=== PATIENT | male | born 1990 | race Caucasian/White ===

== ENCOUNTER 2025-01-17 18:55 | Inpatient (IN) | payer SELFPAY ==
[~2025-01-17] VITALS: Ht 175.3 cm; Wt 122.5 kg
[2025-01-17 19:55] LABS: BASOPHILS % 0.2 % (0.0-2.0); EOSINOPHILS % 0.2 % (0.0-5.0); HEMATOCRIT. 40.6 % (42.0-52.0); LYMPHOCYTES % 8.4 % (20.0-50.0); MEAN CORPUSCULAR VOLUME 87.5 fL (80.0-94.0); MEAN PLATELET VOLUME 9.6 fl (7.4-10.4); MONOCYTES % 9.5 % (2.0-8.0); NEUTROPHILS % 81.7 % (40.0-76.0); PLATELET 269 x1000/uL (130-400); RED BLOOD CELL COUNT 4.64 mill/uL (4.7-6.1); RED CELL DISTRIBUTION WIDTH 14.1 % (11.6-14.6); WHITE BLOOD COUNT 14.4 x1000/uL (4.5-11.0)
[2025-01-17 20:04] LABS: CHLORIDE 100 mEq/L (98-107); POTASSIUM 3.7 mEq/L (3.5-5.1); SODIUM 134 mEq/L (136-145)
[2025-01-17 20:05] LABS: CARBON DIOXIDE 22 mEq/L (21-32); INR 1.1; PROTHROMBIN TIME 11.9 sec (9.6-11.0)
[2025-01-17 20:06] LABS: CALCIUM 8.2 mg/dL (8.7-10.4)
[2025-01-17 20:10] LABS: CREATININE 0.9 mg/dL (0.6-1.3); GLUCOSE 143 mg/dL (70-105)
[2025-01-17 20:11] LABS: UREA NITROGEN BLOOD 13 mg/dL (9-23)
[2025-01-17 20:12] LABS: ALANINE AMINOTRANSFERASE 17 IU/L (10-49); ALBUMIN 3.5 g/dL (3.2-4.8); ASPARTATE AMINOTRANSFERASE 25 IU/L (<34)
[2025-01-17 20:13] LABS: BILIRUBIN DIRECT 0.5 mg/dL (<=3.0); BILIRUBIN TOTAL 1.5 mg/dL (0.1-1.0); PROTEIN TOTAL 7.1 g/dL (6.0-8.3)
[2025-01-17] MEDS: CEFTRIAXONE 1GM/50ML 50 ML IV ONE (20:23)
[2025-01-17 20:24] LABS: TROPONIN I HIGH SENSITIVITY 277 ng/L (3.0-53)
[2025-01-17] MEDS ORDERED: MAGNESIUM/ALUMINUM HYDROXIDE/SIMETHICONE 30ML UDC PO PRN (21:15)
[2025-01-17] MEDS ORDERED: GUAIFENESIN 200MG/10ML SUGAR FREE UDC PO PRN (21:15)
[2025-01-17] MEDS ORDERED: ONDANSETRON HCL 4MG/2ML INJ IV PRN (21:15)
[2025-01-17] MEDS ORDERED: DOCUSATE SODIUM 100MG CAPSULE PO PRN (21:15)
[2025-01-17] MEDS ORDERED: ACETAMINOPHEN 325MG TABLET PO PRN (21:15)
[2025-01-17] MEDS ORDERED: CLONIDINE 0.1MG TABLET PO PRN (21:15)
[2025-01-17] MEDS: CLOPIDOGREL 75MG TABLET PO ONE (21:31)
[2025-01-17] MEDS: ASPIRIN 325MG EC TABLET PO ONE (21:31)
[2025-01-17] MEDS: AZITHROMYCIN 500MG/250ML 250 ML IV ONE (21:31)
[2025-01-17 21:42] VITALS: PULSE 122; RESP 20; O2SAT 93
[2025-01-17] MEDS: IPRATROPIUM/ALBUTEROL 0.5-3(2.5)MG/3ML NEB HHN SCH (21:42)
[2025-01-17] MEDS: LACTATED RINGERS 1,000 ML IV ONE (22:05)
[2025-01-17] MEDS: ENOXAPARIN 120MG/0.8ML SYR SUBCUT SCH (22:16)
[2025-01-17] MEDS: METHYLPREDNISOLONE SOD SUCC 125MG/2ML (ACT-O-VIAL) IV NR (22:54)
[2025-01-17] MEDS ORDERED: NITROGLYCERIN 0.4MG TABLET SL SL PRN (23:30)
[2025-01-17] MEDS ORDERED: DEXTROSE 50% WATER 50ML SYRINGE IV PRN (23:30)
[2025-01-17 23:44] LABS: IRON 30 ug/dL (65-175)
[2025-01-17 23:48] LABS: TOTAL IRON BINDING CAPACITY > 670 ug/dl (250-425)
[2025-01-17] MEDS: IOHEXOL-350 100 ML BOTTLE ONE (23:52)
[2025-01-18] VITALS (8 sets, daily range): BP systolic 106–126; BP diastolic 61–86; PULSE 90–112; RESP 18–22; TEMP 36.4–36.6; O2SAT 92–97
[2025-01-18] MEDS: BUDESONIDE 0.5MG/2ML NEB HHN SCH (01:22)
[2025-01-18 03:19] LABS: CLARITY URINE CLEAR (CLEAR); COLOR URINE DARK YELLOW (YELLOW); GLUCOSE URINE TRACE (NEGATIVE); KETONES URINE NEGATIVE (NEGATIVE); LEUKOCYTE ESTERASE URINE NEGATIVE (NEGATIVE); NITRITE URINE NEGATIVE (NEGATIVE); OCCULT BLOOD URINE 1+ (NEGATIVE); PH URINE 5.5 (4.5-8.0); PROTEIN URINE 3+ (NEGATIVE); SPECIFIC GRAVITY URINE 1.068 (1.005-1.030)
[2025-01-18 03:23] LABS: SODIUM URINE RANDOM 21 mEq/L
[2025-01-18 03:30] LABS: *AMPHETAMINES SCREEN URINE NEGATIVE (NEGATIVE); *BARBITURATES SCREEN URINE NEGATIVE (NEGATIVE); *BENZODIAZEPINES SCREEN URINE NEGATIVE (NEGATIVE); *COCAINE SCREEN URINE PRESUMPTIVE POSITIVE (NEGATIVE); CANNABINOID URINE SCREEN NEGATIVE (NEGATIVE); ECSTASY MDMA SCREEN URINE NEGATIVE (NEGATIVE); METHADONE URINE SCREEN NEGATIVE (NEGATIVE); OPIATES URINE SCREEN NEGATIVE (NEGATIVE); PHENCYCLIDINE URINE SCREEN NEGATIVE (NEGATIVE)
[2025-01-18 03:48] LABS: BACTERIA URINE NONE SEEN; RBC URINE NONE SEEN /hpf (0-2); SQUAMOUS EPITHELIAL CELL URINE NONE SEEN /lpf (RARE/1+); WBC URINE 0-2 /hpf (0-2)
[2025-01-18 04:40] LABS: HEMATOCRIT. 40.3 % (42.0-52.0); HEMOGLOBIN. 13.2 g/dL (14.0-18.0); MEAN CORPUSCULAR HEMOGLOBIN 28.6 pg (28.0-32.0); MEAN CORPUSCULAR HGB CONC 32.8 g/dL (31.0-37.0); MEAN PLATELET VOLUME 9.2 fl (7.4-10.4); PLATELET 266 x1000/uL (130-400); RED BLOOD CELL COUNT 4.64 mill/uL (4.7-6.1); RED CELL DISTRIBUTION WIDTH 14.2 % (11.6-14.6); WHITE BLOOD COUNT 13.7 x1000/uL (4.5-11.0)
[2025-01-18 04:50] LABS: CARBON DIOXIDE 24 mEq/L (21-32); CHLORIDE 101 mEq/L (98-107); POTASSIUM 4.1 mEq/L (3.5-5.1); SODIUM 135 mEq/L (136-145)
[2025-01-18 04:51] LABS: CALCIUM 8.5 mg/dL (8.7-10.4)
[2025-01-18 04:56] LABS: CREATINE KINASE MB FRACTION < 0.5 ng/mL (0.5-3.6); GLUCOSE 251 mg/dL (70-105); TRIGLYCERIDE 77 mg/dL (0-150); UREA NITROGEN BLOOD 16 mg/dL (9-23)
[2025-01-18 04:57] LABS: LDL CHOLESTEROL 87 mg/dL (5-100)
[2025-01-18 04:58] LABS: CHOLESTEROL 145 mg/dL (<200); CREATINE KINASE 153 IU/L (46-171); HDL CHOLESTEROL 38 mg/dL (>55); PHOSPHORUS 2.8 mg/dL (2.5-4.9)
[2025-01-18 05:08] LABS: DIFFERENTIAL COMMENT 1
[2025-01-18 05:18] LABS: OSMOLALITY URINE 799 mOsm/kg (500-850)
[2025-01-18 05:22] LABS: TROPONIN I HIGH SENSITIVITY 191 ng/L (3.0-53)
[2025-01-18 07:40] LABS: PLATELET ESTIMATE NORMAL
[2025-01-18] MEDS: BLOOD SUGAR DIAGNOSTIC STRIP TEST SCH (08:19)
[2025-01-18] MEDS: INSULIN LISPRO 100 UNITS/ML SUBCUT SCH (08:19)
[2025-01-18] MEDS: ASPIRIN 81MG EC TABLET PO SCH (11:56)
[2025-01-18] MEDS: FERROUS SULFATE 325MG TABLET PO SCH (11:56)
[2025-01-18] MEDS ORDERED: AZITHROMYCIN 500MG/250ML 250 ML IV SCH (21:00)
[2025-01-18] MEDS: FAMOTIDINE 20MG TABLET PO SCH (22:47)
[2025-01-18] MEDS: ATORVASTATIN CALCIUM 20MG TABLET PO SCH (22:48)
[2025-01-18] MEDS: SODIUM CHLORIDE 0.45% 1,000 ML IV SCH (22:56)
[2025-01-18] MEDS: CEFTRIAXONE 1GM/50ML 50 ML IV SCH (22:57)
[2025-01-19] VITALS (11 sets, daily range): BP systolic 105–126; BP diastolic 59–75; PULSE 19–114; RESP 16–24; TEMP 36.1–37.9; O2SAT 86–99
[2025-01-19] MEDS: AZITHROMYCIN 500MG/250ML 250 ML IV SCH (01:49)
[2025-01-19] MEDS: IPRATROPIUM BROMIDE (0.02%) 0.5MG/2.5ML NEB HHN SCH (02:10)
[2025-01-19 07:06] LABS: HEMATOCRIT 38.1 % (42.0-52.0); HEMATOCRIT. 38.1 % (42.0-52.0); HEMOGLOBIN 12.5 g/dL (14.0-18.0); HEMOGLOBIN. 12.5 g/dL (14.0-18.0); MEAN CORPUSCULAR HEMOGLOBIN 28.6 pg (28.0-32.0); MEAN CORPUSCULAR HGB CONC 32.9 g/dL (31.0-37.0); MEAN PLATELET VOLUME 9.8 fl (7.4-10.4); PLATELET 325 x1000/uL (130-400); RED BLOOD CELL COUNT 4.38 mill/uL (4.7-6.1); RED CELL DISTRIBUTION WIDTH 13.7 % (11.6-14.6); WHITE BLOOD COUNT 20.7 x1000/uL (4.5-11.0)
[2025-01-19 07:59] LABS: DIFFERENTIAL COMMENT 1
[2025-01-19] MEDS: ENOXAPARIN 40MG/0.4ML SYR SUBCUT SCH (09:37)
[2025-01-19 11:57] LABS: CHLORIDE 100 mEq/L (98-107); POTASSIUM 3.9 mEq/L (3.5-5.1); SODIUM 133 mEq/L (136-145)
[2025-01-19 11:58] LABS: CALCIUM 8.6 mg/dL (8.7-10.4); CARBON DIOXIDE 20 mEq/L (21-32)
[2025-01-19 12:03] LABS: CREATININE 0.9 mg/dL (0.6-1.3); GLUCOSE 220 mg/dL (70-105); UREA NITROGEN BLOOD 24 mg/dL (9-23)
[2025-01-19 12:05] LABS: ALANINE AMINOTRANSFERASE 46 IU/L (10-49); ALBUMIN 3.6 g/dL (3.2-4.8); ASPARTATE AMINOTRANSFERASE 48 IU/L (<34); BILIRUBIN TOTAL 0.6 mg/dL (0.1-1.0); PROTEIN TOTAL 7.1 g/dL (6.0-8.3)
[2025-01-19 12:07] LABS: TROPONIN I HIGH SENSITIVITY 88 ng/L (3.0-53)
[2025-01-19 14:31] LABS: PLATELET ESTIMATE NORMAL
[2025-01-19] MEDS ORDERED: METF-414 MT (15:36)
[2025-01-19] MEDS ORDERED: ATOR20TA PO (15:36)
[2025-01-19] MEDS ORDERED: FAMO20TA8 PO (15:36)
[2025-01-19] MEDS ORDERED: PULM50 HHN (15:36)
[2025-01-19] MEDS ORDERED: LEVO750T68 MT (15:36)
[2025-01-19] MEDS ORDERED: ASPI-1406 PO (15:36)
[2025-01-19] MEDS ORDERED: FERR-63 PO (15:36)
[2025-01-19] MEDS: CEFTRIAXONE 1GM/50ML 50 ML IV SCH (19:59)
[2025-01-20] VITALS (11 sets, daily range): BP systolic 106–129; BP diastolic 56–78; PULSE 87–120; RESP 18–23; TEMP 36.3–36.8; O2SAT 88–99
[2025-01-20] MEDS: IPRATROPIUM/ALBUTEROL 0.5-3(2.5)MG/3ML NEB HHN PRN (04:23)
[2025-01-20] MEDS ORDERED: IPRATROPIUM BROMIDE (0.02%) 0.5MG/2.5ML NEB HHN SCH (09:15)
[2025-01-20] MEDS: PIPERACILLIN/TAZO 3.375G/50ML 50 ML IV SCH (09:29)
[2025-01-20] MEDS: ZINC SULFATE 220 MG ( 50 ) CAPSULE PO SCH (09:29)
[2025-01-20] MEDS: PREDNISONE 5MG TABLET PO SCH (09:29)
[2025-01-20] MEDS: ASCORBIC ACID 500 MG TABLET PO SCH (09:29)
[2025-01-20 10:57] LABS: INFLUENZA TYPE A Presumptive Negative (Pres. Neg.)
[2025-01-20 10:58] LABS: INFLUENZA TYPE B Presumptive Negative (Pres. Neg.)
[2025-01-20 11:04] LABS: RESPIRATORY SYNCYTIAL VIRUS Not Detected (Not Detectd)
[2025-01-20 11:17] LABS: CARBON DIOXIDE 26 mEq/L (21-32); CHLORIDE 100 mEq/L (98-107); POTASSIUM 4.2 mEq/L (3.5-5.1); SODIUM 135 mEq/L (136-145)
[2025-01-20 11:18] LABS: CALCIUM 8.6 mg/dL (8.7-10.4)
[2025-01-20 11:22] LABS: GLUCOSE 170 mg/dL (70-105)
[2025-01-20 11:23] LABS: UREA NITROGEN BLOOD 25 mg/dL (9-23)
[2025-01-20 11:24] LABS: ALANINE AMINOTRANSFERASE 129 IU/L (10-49); ALBUMIN 3.5 g/dL (3.2-4.8); ASPARTATE AMINOTRANSFERASE 75 IU/L (<34)
[2025-01-20 11:25] LABS: BILIRUBIN TOTAL 0.9 mg/dL (0.1-1.0)
[2025-01-20 11:28] LABS: BASOPHILS % 0.1 % (0.0-2.0); EOSINOPHILS % 0.6 % (0.0-5.0); HEMATOCRIT. 39.7 % (42.0-52.0); HEMOGLOBIN. 12.7 g/dL (14.0-18.0); LYMPHOCYTES % 17.3 % (20.0-50.0); MEAN CORPUSCULAR HEMOGLOBIN 28.4 pg (28.0-32.0); MEAN CORPUSCULAR HGB CONC 32.1 g/dL (31.0-37.0); MEAN CORPUSCULAR VOLUME 88.3 fL (80.0-94.0); MEAN PLATELET VOLUME 9.4 fl (7.4-10.4); PLATELET 344 x1000/uL (130-400); RED BLOOD CELL COUNT 4.49 mill/uL (4.7-6.1); RED CELL DISTRIBUTION WIDTH 14.4 % (11.6-14.6); WHITE BLOOD COUNT 11.2 x1000/uL (4.5-11.0)
[2025-01-20] MEDS: METHYLPREDNISOLONE SOD SUCC 40MG/ML (ACT-O-VIAL) IV SCH (16:44)
[2025-01-20] MEDS: SACUBITRIL/VALSARTAN 24MG/26MG TABLET PO SCH (20:47)
[2025-01-20] MEDS: FUROSEMIDE 40MG TABLET PO SCH (20:48)
[2025-01-21] VITALS (10 sets, daily range): BP systolic 96–111; BP diastolic 55–72; PULSE 85–106; RESP 18–22; TEMP 35.9–36.4; O2SAT 93–98
[2025-01-21 06:26] LABS: HEMATOCRIT 38.4 % (42.0-52.0); HEMOGLOBIN 12.7 g/dL (14.0-18.0); MEAN CORPUSCULAR HEMOGLOBIN 28.6 pg (28.0-32.0); MEAN CORPUSCULAR HGB CONC 33.1 g/dL (31.0-37.0); MEAN CORPUSCULAR VOLUME 86.6 fL (80.0-94.0); PLATELET 354 x1000/uL (130-400); RED BLOOD CELL COUNT 4.43 mill/uL (4.7-6.1); RED CELL DISTRIBUTION WIDTH 14.1 % (11.6-14.6)
[2025-01-21 06:57] LABS: CHLORIDE 101 mEq/L (98-107); POTASSIUM 4.4 mEq/L (3.5-5.1); SODIUM 135 mEq/L (136-145)
[2025-01-21 07:01] LABS: CALCIUM 8.4 mg/dL (8.7-10.4); CARBON DIOXIDE 25 mEq/L (21-32)
[2025-01-21 07:06] LABS: CREATININE 0.8 mg/dL (0.6-1.3); GLUCOSE 194 mg/dL (70-105); UREA NITROGEN BLOOD 17 mg/dL (9-23)
[2025-01-21 07:07] LABS: ALANINE AMINOTRANSFERASE 99 IU/L (10-49)
[2025-01-21 07:08] LABS: ALBUMIN 3.4 g/dL (3.2-4.8); ASPARTATE AMINOTRANSFERASE 36 IU/L (<34); BILIRUBIN TOTAL 0.8 mg/dL (0.1-1.0); PROTEIN TOTAL 6.8 g/dL (6.0-8.3)
[2025-01-21] MEDS: SPIRONOLACTONE 25MG TABLET PO SCH (08:29)
[2025-01-21] MEDS: EMPAGLIFLOZIN 10MG TABLET PO SCH (08:29)
[2025-01-21 16:18] LABS: HEPATITIS B SURFACE ANTIGEN NEGATIVE (Negative)
[2025-01-21 16:39] LABS: HEPATITIS A AB IGM NEGATIVE (Negative)
[2025-01-21 16:40] LABS: HEPATITIS B CORE AB IGM NEGATIVE (Negative); HEPATITIS C AB NON REACTIVE (Neg) (Negative)
[2025-01-22] VITALS (8 sets, daily range): BP systolic 93–107; BP diastolic 51–66; PULSE 74–96; RESP 17–20; TEMP 35.8–36.5; O2SAT 90–97
[2025-01-22 06:13] LABS: CHLORIDE 103 mEq/L (98-107); POTASSIUM 4.2 mEq/L (3.5-5.1); SODIUM 138 mEq/L (136-145)
[2025-01-22 06:14] LABS: CALCIUM 8.7 mg/dL (8.7-10.4); CARBON DIOXIDE 25 mEq/L (21-32)
[2025-01-22 06:19] LABS: GLUCOSE 181 mg/dL (70-105); UREA NITROGEN BLOOD 23 mg/dL (9-23)
[2025-01-22 07:03] LABS: EOSINOPHILS % 0.3 % (0.0-5.0); HEMATOCRIT. 41.6 % (42.0-52.0); HEMOGLOBIN. 13.1 g/dL (14.0-18.0); LYMPHOCYTES % 12.5 % (20.0-50.0); MEAN CORPUSCULAR HGB CONC 31.5 g/dL (31.0-37.0); MEAN CORPUSCULAR VOLUME 88.8 fL (80.0-94.0); MEAN PLATELET VOLUME 9.2 fl (7.4-10.4); MONOCYTES % 7.9 % (2.0-8.0); NEUTROPHILS % 79.3 % (40.0-76.0); PLATELET 444 x1000/uL (130-400); RED BLOOD CELL COUNT 4.69 mill/uL (4.7-6.1); RED CELL DISTRIBUTION WIDTH 14.1 % (11.6-14.6); WHITE BLOOD COUNT 13.9 x1000/uL (4.5-11.0)
[2025-01-22 10:12] LABS: BG CARBOXYHEMOGLOBIN 0.6 % (0.5-1.5); BG FRACTION INSPIRED OXYGEN 21; BG METHEMOGLOBIN 0.3 % (0.5-1.5); BG OXYGEN SATURATION 91.9 % (94.0-98.0); BG OXYHEMOGLOBIN 91.1 % (94.0-98.0); BG PCO2 32.9 mmHg (35.0-48.0); BG PH 7.462 (7.350-7.450); BG PO2 60.4 mmHg (83.0-108.0); BG SAMPLE SITE LEFT RADIAL; BG TOTAL HEMOGLOBIN 14.6 g/dL (13.5-17.5); BG VENT MODE ROOM AIR
[2025-01-22] MEDS ORDERED: ZINC1CAP2 PO (12:13)
[2025-01-22] MEDS ORDERED: SPIR25TA PO (12:13)
[2025-01-22] MEDS ORDERED: FURO40TA5 PO (12:13)
[2025-01-22] MEDS ORDERED: ASCO500T20 PO (12:13)
[2025-01-22] MEDS ORDERED: EMPA10TA PO (12:13)
[2025-01-22] MEDS ORDERED: P20 MT (12:13)
[2025-01-22] MEDS ORDERED: SACU1TAB PO (12:13)
== END 2025-01-22 13:45 | disposition home or self-care (01) | DRG 720 ==
LOC: ER 19:11 → 8WST 20:35 → EDBEDREQ 20:41
PROVIDERS: ADMIT Hospitalist; ATTEND Hospitalist
DX: A41.9 Sepsis, unspecified organism (principal); J96.01 Acute respiratory failure with hypoxia; I21.A1 Myocardial infarction type 2; I50.23 Acute on chronic systolic (congestive) heart failure; E83.51 Hypocalcemia; E87.1 Hypo-osmolality and hyponatremia; I27.20 Pulmonary hypertension, unspecified; I42.9 Cardiomyopathy, unspecified; J18.9 Pneumonia, unspecified organism; E80.6 Other disorders of bilirubin metabolism; Z20.822 Contact with and (suspected) exposure to COVID-19; F14.90 Cocaine use, unspecified, uncomplicated; I08.1 Rheumatic disorders of both mitral and tricuspid valves; D64.9 Anemia, unspecified; E11.65 Type 2 diabetes mellitus with hyperglycemia; E66.01 Morbid (severe) obesity due to excess calories; F17.210 Nicotine dependence, cigarettes, uncomplicated; F17.290 Nicotine dependence, other tobacco product, uncomplicated; Z79.4 Long term (current) use of insulin; Z79.82 Long term (current) use of aspirin; Z79.84 Long term (current) use of oral hypoglycemic drugs; Z82.49 Family history of ischemic heart disease and other diseases of the circulatory system; Z79.899 Other long term (current) drug therapy; Z68.39 Body mass index [BMI] 39.0-39.9, adult
CPT/HCPCS: 36415; 36600; 71045; 71275; 80048; 80053; 80061; 80076; 80305; 81003; 82330; 82375; 82550; 82553; 82728; 82805; 82962; 83036; 83540; 83550; 83605; 83735; 83880; 83930; 83935; 84100; 84145; 84300; 84439; 84443; 84484; 85025; 85027; 86705; 86709; 86850; 86900; 87340; 87420; 87804; 93005; 93306; 93970; 94070; 94640; 94760; 98960; 99291; A4606; J0456; J0696; J1650; J1815; J2543; J2919; J2920; J7512; J7626; Q9967

== ENCOUNTER 2025-08-20 03:25 | Emergency (ER) | payer OTHER ==
[~2025-08-20] VITALS: Ht 175.3 cm; Wt 104.0 kg
[~2025-08-20 03:25] MED LIST: ASCO500T20 PO; ASPI-1406 PO; ATOR20TA PO; EMPA10TA PO; FAMO20TA8 PO; FERR-63 PO; FURO40TA5 PO; LEVO750T68 MT; METF-414 MT; P20 MT; PULM50 HHN; SACU1TAB PO; SPIR25TA PO; ZINC1CAP2 PO
[2025-08-20 03:31] VITALS: TEMP 36.8; O2SAT 96
[2025-08-20 04:28] VITALS: BP 116/74; PULSE 92; RESP 14; O2SAT 95
== END 2025-08-20 04:32 ==
LOC: ER 03:25
DX: Z00.00 Encounter for general adult medical examination without abnormal findings (principal); Z79.899 Other long term (current) drug therapy; Z79.84 Long term (current) use of oral hypoglycemic drugs; Z79.82 Long term (current) use of aspirin; Z79.51 Long term (current) use of inhaled steroids
CPT/HCPCS: 99283